=== PATIENT | female | born 1980 | race Caucasian/White ===

== ENCOUNTER → 2019-09-07 13:38 | Outpatient (CLI) | payer OTHER, SELFPAY ==
--- NOTE | 2019-09-07 13:44 | DI.CT.S_ITS ---
PROCEDURE: CT ABDOMEN PELVIS WO/W CON INDICATIONS: Other microscopic hematuria TECHNIQUE: Optional 5 mm thick noncontrast images acquired from the diaphragm to the symphysis pubis. After the administration of intravenous contrast, 5 mm thick images acquired from the diaphragm to the symphysis pubis after a 10-minute delay. 2 mm thick coronal and sagittal reformats were then performed of the kidneys and ureters. For radiation dose reduction, the following was used: automated exposure control, adjustment of mA and/or kV according to patient size. COMPARISON: [facility] Ultrasound, US, US PELVIC COMPLETE WITH TRANSVAGINAL, 03/29/2019, 17:26. FINDINGS: Image quality: Excellent. Lung bases: Lung bases are clear. Heart size is normal. Urinary system: Both kidneys are normal in size, without hydronephrosis or nephrolithiasis on pre-contrast images. No perinephric fat stranding. There is normal bilateral renal enhancement. Renal calyces appear normal in morphology when filled with contrast. Opacified portions of both ureters demonstrate normal caliber. Bladder wall thickness is normal. No calcified bladder stones. Other solid organs: Liver is normal in size and enhancement. Gallbladder is decompressed. Biliary system is non dilated. Pancreas enhances normally. Spleen is normal in size and enhancement. No adrenal nodules. Peritoneum and bowel: Bowel loops demonstrate normal wall thickness and caliber. Normal appendix. No free fluid or air. Nodes and vessels: No retroperitoneal or mesenteric adenopathy by size criteria. Aorta and inferior vena cava are normal in size. Abdominal wall: No ventral hernias. Pelvis: Trace free fluid in the pelvis. Small left ovarian cyst. No inguinal hernias or adenopathy. IUD is centered in the uterus. The inferior tip is near the internal cervical os. Bones: No suspicious bony lesions. No vertebral body compression fractures. IMPRESSION: No kidney stones. No solid renal mass. Normal caliber of the ureters. The IUD appears low in position. Dictated by: Trevor Lane M.D. on 09/07/2019 at 15:02 Approved by: Trevor Lane M.D. on 09/07/2019 at 15:25
== END ==
PROVIDERS: PCP Family Medicine; Referring Provider Urology; Visit Provider Urology
DX: R31.29 Other microscopic hematuria (principal); N83.202 Unspecified ovarian cyst, left side; Z97.5 Presence of (intrauterine) contraceptive device
CPT/HCPCS: 74178; Q9967

== ENCOUNTER → 2021-03-17 10:26 | Outpatient (CLI) | payer BC, SELFPAY | PROVIDERS: PCP Family Medicine; Visit Provider Physician Assistant | DX: N39.0 Urinary tract infection, site not specified (principal) | CPT/HCPCS: 87077; 87086; 87186 ==